=== PATIENT | female | born 1970 | race American Indian/Alaskan Native ===

== ENCOUNTER 2019-03-27 10:07 | Emergency (ER) | payer SELFPAY ==
[2019-03-27 10:20] VITALS: BP 137/92
--- NOTE | 2019-03-27 11:48 | Emergency Department Report ---
ED General Adult HPI - General Chief complaint: Medical Clearance Stated complaint: LFT ARM NUMB Time Seen by Provider: 03/27/19 10:46 Source: patient Mode of arrival: Ambulatory Limitations: No Limitations - History of Present Illness Initial comments: Patient is a 49-year-old female presents emergency room with complaints of left- sided neck pain that began 3 days ago. She states she has associated tingling in her left arm and that the pain radiates down her left arm. She denies any fall or injury. She denies any weakness. She denies ever having this in the past or ever injuring her neck in the past. Denies any past medical history or allergies medications. - Related Data Previous Rx's Medication Instructions Recorded Last Taken Type Ibuprofen [Motrin] 400 mg PO Q8H PRN #60 tablet 03/18/15 Unknown Rx traMADoL [Ultram] 50 mg PO Q6HR PRN #14 tablet 03/18/15 Unknown Rx Cyclobenzaprine [Flexeril] 10 mg PO QHS PRN #12 tablet 03/27/19 Unknown Rx Naproxen [EC-Naproxen] 500 mg PO BID PRN #20 tablet. 03/27/19 Unknown Rx Allergies Allergy/AdvReac Type Severity Reaction Status Date / Time No Known Allergies Allergy Verified 03/18/15 14:29 ED Review of Systems ROS: Stated complaint: LFT ARM NUMB Other details as noted in HPI Comment: All other systems reviewed and negative ED Past Medical Hx - Past Medical History Previous Medical History?: No - Surgical History Past Surgical History?: No - Social History Smoking Status: Current Every Day Smoker Substance Use Type: Alcohol - Medications Home Medications: Home Medications Medication Instructions Recorded Confirmed Last Taken Type Ibuprofen [Motrin] 400 mg PO Q8H PRN #60 tablet 03/18/15 Unknown Rx traMADoL [Ultram] 50 mg PO Q6HR PRN #14 tablet 03/18/15 Unknown Rx Cyclobenzaprine [Flexeril] 10 mg PO QHS PRN #12 tablet 03/27/19 Unknown Rx Naproxen [EC-Naproxen] 500 mg PO BID PRN #20 tablet. 03/27/19 Unknown Rx ED Physical Exam - General Limitations: No Limitations General appearance: alert, in no apparent distress - Head Head exam: Present: atraumatic, normocephalic - Eye Eye exam: Present: normal appearance - ENT ENT exam: Present: mucous membranes moist - Neck Neck exam: Present: normal inspection, tenderness (left sided C-spine paraspinal and left sided trapezius TTP, no midline C-spine tenderness, no step offs, no deformities, no crepitus, no ecchymosis, no edema), full ROM - Respiratory Respiratory exam: Present: normal lung sounds bilaterally. Absent: respiratory distress, wheezes, rales, rhonchi, stridor, chest wall tenderness, accessory muscle use, decreased breath sounds, prolonged expiratory - Cardiovascular Cardiovascular Exam: Present: regular rate, normal rhythm, normal heart sounds. Absent: systolic murmur, diastolic murmur, rubs, gallop - Neurological Exam Neurological exam: Present: alert, oriented X3, normal gait, other (5/5 strength in the BUE, sensation intact fully in the BUE, 2+ radial pulses bilaterally) - Psychiatric Psychiatric exam: Present: normal affect, normal mood - Skin Skin exam: Present: warm, dry, intact ED Course Vital Signs 03/27/19 10:18 Temperature 98.3 F Pulse Rate 84 Respiratory 16 Rate Blood Pressure 137/92 [Left] O2 Sat by Pulse 98 Oximetry ED Medical Decision Making - Radiology Data Radiology results: report reviewed CERVICAL SPINE, 4 VIEWS INDICATION / CLINICAL INFORMATION: neck pain, tingling in left arm. COMPARISON: None available. FINDINGS: Vertebral body heights and disc spaces are fairly well-preserved. Alignment is within normal limits. There is some mild spondylitic change of the mid cervical spine. No visible fracture. Visualized lung apices are clear. IMPRESSION: Minimal spondylitic change of the mid cervical spine. No other significant osseous abnormality. Signer Name: Juanita Veras MD Signed: 03/27/2019 12:22 PM Workstation Name: [id number] Transcribed By: JR Dictated By: Juanita Veras MD Electronically Authenticated By: Juanita Veras MD Signed Date/Time: 03/27/19 1222 - Medical Decision Making Patient is a 49-year-old female presents emergency room with complaints of left- sided neck pain that began 3 days ago. She states she has associated tingling in her left arm and that the pain radiates down her left arm. She denies any fall or injury. She denies any weakness. She denies ever having this in the past or ever injuring her neck in the past. Denies any past medical history or allergies medications. Vital signs stable. on exam: left sided C-spine paraspinal and left sided trapezius TTP, no midline C-spine tenderness, no step offs, no deformities, no crepitus, no ecchymosis, no edema, 5/5 strength in the BUE, sensation intact fully in the BUE, 2+ radial pulses bilaterally. XR c- spine: Minimal spondylitic change of the mid cervical spine. No other significant osseous abnormality. Symptoms and examination most likely consistent with cervical radiculopathy. pt given prescription for Flexeril and naproxen. advised pt to please take medication as prescribed as needed. Do not drive or operate machinery while taking muscle relaxer. May use ice pack, heating pad, rest, epsom salt bath. Follow-up with orthopedic doctor in the next 2-3 days. Return to the emergency room for any new or worsening symptoms. Patient given list of community clinics. - Differential Diagnosis cervical radiculopathy, spondylolisthesis, spondylosis, neuropathy, DDD Critical care attestation.: If time is entered above; I have spent that time in minutes in the direct care of this critically ill patient, excluding procedure time. ED Disposition Clinical Impression: Neck pain, Tingling of left upper extremity, Cervical spondylitis Disposition: TO HOME OR SELFCARE Is pt being admited?: No Does the pt Need Aspirin: No Condition: Stable Instructions: Cervical Radiculopathy (ED) Additional Instructions: Please take medication as prescribed as needed. Do not drive or operate machinery while taking muscle relaxer. May use ice pack, heating pad, rest, epsom salt bath. Follow-up with orthopedic doctor in the next 2-3 days. Return to the emergency room for any new or worsening symptoms. Prescriptions: Cyclobenzaprine [Flexeril] 10 mg PO QHS PRN #12 tablet PRN Reason: Muscle Spasm Naproxen [EC-Naproxen] 500 mg PO BID PRN #20 tablet.dr GASPAR Reason: pain Referrals: PRIMARY MD [facility] [Primary Care Provider] - 2-3 Days TITA WAGNER MD [Staff Physician] - 2-3 Days [facility] - 2-3 Days Forms: Work/School Release Form(ED) Time of Disposition: 12:29 Print Language: UKRAINIAN
--- NOTE | 2019-03-27 12:27 | XRay Report ---
CERVICAL SPINE, 4 VIEWS INDICATION / CLINICAL INFORMATION: neck pain, tingling in left arm. COMPARISON: None available. FINDINGS: Vertebral body heights and disc spaces are fairly well-preserved. Alignment is within normal limits. There is some mild spondylitic change of the mid cervical spine. No visible fracture. Visualized lung apices are clear. IMPRESSION: Minimal spondylitic change of the mid cervical spine. No other significant osseous abnorm ality. Signer Name: Juanita Veras MD Signed: 03/27/2019 12:22 PM Workstation Name: [id number]
== END 2019-03-27 12:40 | disposition home or self-care (01) ==
LOC: ED 10:07
DX: M46.92 Unspecified inflammatory spondylopathy, cervical region (principal); R20.2 Paresthesia of skin; F17.200 Nicotine dependence, unspecified, uncomplicated; Z79.899 Other long term (current) drug therapy
CPT/HCPCS: 72040